=== PATIENT | female | born 1965 | race Asian ===

== ENCOUNTER 2019-07-04 16:08 | Emergency (ER) | payer MEDICAID, SELFPAY ==
[2019-07-04 16:21] VITALS: BP 188/88; PULSE 68; TEMP 36.3; O2SAT 97
--- NOTE | 2019-07-04 16:30 | DI.RAD_ITS ---
EXAM: XR PORTABLE CHEST AP CLINICAL HISTORY: R shoulder pain, ?SOB TECHNIQUE: 2D digital imaging was performed. COMPARISON: No exams were available for comparison FINDINGS: MEDIASTINUM: Normal. HEART: Normal. PULMONARY VASCULATURE: Normal. LUNGS: There is a question of increased lung markings in the medial right base. PLEURAL SPACE: No pleural effusion or pneumothorax. BONE:Normal. OTHER FINDINGS:There is mild elevation of the right hemidiaphragm. IMPRESSION: Question of a right basilar infiltrate. DATA REPOSITORY: RADIATION DOSE DELIVERED:
--- NOTE | 2019-07-04 16:30 | DI.CT_ITS ---
EXAM: CT HEAD WO CLINICAL HISTORY: new onset vertiginous sx's. TECHNIQUE: Imaging Protocol: Axial computed tomography images with coronal and sagittal reformatted images were created and reviewed COMPARISON: No exams were available for comparison FINDINGS: Ventricles and Extra axial spaces: Normal in size and morphology for the patient's age. Hemorrhage: None. Cerebral parenchyma: Normal. There are dense calcifications seen in the basal ganglia bilaterally. Midline shift: None. Brainstem/Cerebellum: Normal. Calvarium: Normal. Visualized Paranasal sinuses/Mastoids: There is mild mucosal thickening in the left maxillary sinus. Soft Tissues: Unremarkable. IMPRESSION: No acute intracranial process. RADIATION DOSE DELIVERED: Total DLP DATA REPOSITORY: All CT scans at this facility are submitted to the National Radiology Data Registry (NRDR) Dose Index Registry (DIR) with the [employer] (A[employer]). RADIATION OPTIMIZATION: All CT scans at this facility use at least one of these dose optimization te chniques: automated exposure control; mA and/or kV adjustment per patient size (includes targeted exa ms where dose is matched to clinical indication); or iterative reconstruction.
--- NOTE | 2019-07-04 16:37 | ED.GENADUL_ITS ---
Discharge Plan Disposition Patient Disposition: HOME Condition: Improving Discharge Details Chief Complaint: SOB Clinical Impression: Pneumonia involving right lung, Vertigo, Sinus infection Primary Care Provider: Jocelyn,Local ED Provider: Zeb Latham Home Meds and New Rx's Prescriptions: New cefdinir 300 mg capsule 300 mg PO Q12H 10 Days Qty: 20 RF: 0 meclizine 12.5 mg tablet 12.5 mg PO BID PRNQty: 10 RF: 0 Continued metformin 500 mg Tablet 1,000 mg PO BID RF: 0 metoprolol tartrate 100 mg Tablet 100 mg PO BID RF: 0 glipizide 10 mg Tablet 10 mg PO DAILY RF: 0 lovastatin 40 mg Tablet 40 mg PO DAILY RF: 0 sertraline 100 mg Tablet 100 mg PO DAILY RF: 0 aspirin [Aspir-81] 81 mg Tablet,Delayed Release (Dr/Ec) 81 mg PO DAILY RF: 0 levothyroxine 25 mcg Tablet 25 mcg PO DAILY RF: 0 lisinopril 40 mg Tablet 40 mg PO DAILY RF: 0 One Daily For Women 18-0.4 mg Tablet 1 tab PO DAILY RF: 0 Discharge Instructions Instructions: Sinusitis (ED), Vertigo (ED), Pneumonia (ED) Additional Instructions: May use meclizine if needed for persistent dizzy sensation. You will benefit from sleeping with the head of the bed elevated 2-3 pillows which will allow the dizziness to help settle down. Avoid quick motions of the head or with bending over. Please take antibiotic as prescribed. Continue your regular medications. Return if you develop persistent high fevers, difficulty breathing, or any other acute concern. Your work-up today included laboratory analysis, chest x-ray, CAT scan of the head. We have ordered outpatient COVID testing for you which as we discussed will occur as an outpatient tomorrow. Medical Decision Making <Andrea Burton MD - Last Filed: 07/04/19 19:26> 54-year-old female presents from home with her son. She has been fasting for the nondenominational holiday. She states that she woke up this afternoon, felt the room was spinning and that this was worse with movement of the head. She also questions transient shortness of breath. States she has had 2 days of constant right shoulder pain is dull and achy. She has not had a rash, no cough, no recent travel. No chest pain on my interview. She has a history of diabetes and hypertension. She arrives with blood pressure approximately 180/80. No evidence of neurologic dysfunction or deficit. Differential diagnosis would include peripheral vertigo, must exclude central process causing vertiginous symptoms, and given the right shoulder pain and question transient shortness of breath would consider PE or other respiratory process. Patient IV access established, referred for EKG, chest x-ray, laboratory testing. She was given meclizine and a small fluid bolus. CT scan of the head without acute finding, there is evidence of mild mucosal thickening in the left maxillary sinus. Chest x-ray with patchy opacity at the right lung base suspicious for a early pneumonia. Patient was given a gram of ceftriaxone I will place her on a course of Cefpodoxime. Will order outpatient coronavirus testing. Patient did have some improvement with meclizine and will benefit from its use a s needed at home. She was observed and repeat troponin will be obtained. Patient be signed out to Dr. Latham pending final diagnostics. Please see his note ECG Data Attestation: I personally reviewed and interpreted this ECG (s) as follows: Interpretation: Normal sinus rhythm, rate of 65, QRS is narrow, there is no ST segment elevation present, the QTC is 432 <Zeb Latham MD - Last Filed: 07/04/19 20:08> patient signed out to me pending second troponin and if negative d/c. 2nd troponin is negative. She is hd stable speaking in full sentences and feels improved, is apporpriate for d/c. Return precautions given and advised to f/u with pcp within a week Lab Data Lab results reviewed: Yes I reviewed the patient's lab results. HPI <Andrea Burton MD - Last Filed: 07/04/19 19:26> General Mode of arrival: wheelchair . Date/Time Provider Initiated Documentation: 07/04/19 16:12 . Limitations to Documentation: no limitations . Information obtained by: patient and family . History of Present Illness 54 year old F presents to the emergency department with the chief complaint of Transient vertiginous symptoms associated w shortness of breath, improved., described as moderate, Quality is described as constant, and is localized to the head. Patient reports no radiation. Patient started experiencing this hour(s) and it has been intermittent. Rest improves symptom(s), Movement worsens symptoms . Patient notes loss of appetite and shortness of breath; denies chest pain, cough, fever/chills, headaches, syncope and weakness. Patient did receive the following treatments prior to arrival, none and other (Patient has been fasting for the hol) Related Data Home Medications Medication Instructions Recorded Confirmed One Daily For Women 1 tab PO DAILY 07/04/19 07/04/19 aspirin [Aspir-81] 81 mg PO DAILY 07/04/19 07/04/19 cefdinir 300 mg PO Q12H 10 Days #20 cap 07/04/19 glipizide 10 mg PO DAILY 07/04/19 07/04/19 levothyroxine 25 mcg PO DAILY 07/04/19 07/04/19 lisinopril 40 mg PO DAILY 07/04/19 07/04/19 lovastatin 40 mg PO DAILY 07/04/19 07/04/19 meclizine 12.5 mg PO BID PRN #10 tab 07/04/19 metformin 1,000 mg PO BID 07/04/19 07/04/19 metoprolol tartrate 100 mg PO BID 07/04/19 07/04/19 sertraline 100 mg PO DAILY 07/04/19 07/04/19 Previous Rx's Medication Instructions Recorded cefdinir 300 mg PO Q12H 10 Days #20 cap 07/04/19 meclizine 12.5 mg PO BID PRN #10 tab 07/04/19 Allergies Allergy/AdvReac Type Severity Reaction Status Date / Time No Known Allergies Allergy Unverified 07/04/19 16:26 General Stated Complaint: SOB NAVEEN: 3 Review of Systems <Andrea Burton MD - Last Filed: 07/04/19 19:26> Narrative: No fever, cough, recent travel or known sick contacts. 7 systems reviewed and otherwise negative PFSH <Andrea Burton MD - Last Filed: 07/04/19 19:26> Social History Smoking/Tobacco Use Status: Never Alcohol Intake: never Drug use: Never Substance use type: does not use Do you feel safe at home: Yes Do you feel safe in your relationship?: Yes Exam <Andrea Burton MD - Last Filed: 07/04/19 19:26> Narrative Exam Narrative: GEN: awake, alert, oriented 3. Pleasant, well groomed, interactive. HEAD: Normocephalic, atraumatic ENT: Mucous membranes moist, tympanic membranes clear bilaterally and external ear exam unremarkable EYES: PERRL, EOMI NECK: Full ROM, no HARSHAD, no menigismus CHEST/RESP: Nontender, clear to auscultation bilateral, no wheeze/rhonchi/rales CARDIOVASCULAR: RRR, no murmur, rub joann. 2+ Rad pulse bilateral ABDOMEN: Soft, nontender, no mass. +Bowel sounds EXT: Full ROM, no edema, no rash Neuro: Grossly normal neurologic exam, conversant, interactive. Psych: Speech fluent, thoughts congruent, affect normal Course <Andrea Burton MD - Last Filed: 07/04/19 19:26> Vital Signs Vital signs: Vital Signs Temperature 36.3 C L 07/04/19 16:21 Pulse 68 07/04/19 16:21 Blood Pressure 188/88 H 07/04/19 16:21 Pulse Oximetry 97 07/04/19 16:21 Temperature 36.3 C L 07/04/19 16:21 Pulse 68 07/04/19 16:21 Respiratory Effort 07/04/19 16:24 Blood Pressure 188/88 H 07/04/19 16:21 Blood Pressure Position Sitting 07/04/19 16:21 Pulse Oximetry 97 07/04/19 16:21 Oxygen Delivery Method Room Air 07/04/19 16:21 Oxygen Flow Rate 0 07/04/19 16:21 Pain Level 3 07/04/19 16:21 Sign Out <Andrea Burton MD - Last Filed: 07/04/19 19:26> Sign Out Data: Sign Out Comment: Followup Troponin Last updated by Andrea Burton MD at 07/04/19 19:39
[2019-07-04 16:51] VITALS: RESP 16
[2019-07-04] MEDS: Meclizine 25 MG TAB PO ×2 (16:56→18:40)
[2019-07-04 16:58] LABS: Abs Immature Grans 0.02 k/cumm (0.0-0.09); Absolute Basophil Count 0.02 k/cumm (0.0-0.2); Absolute Eosinophil Count 0.22 k/cumm (0.0-0.7); Absolute Monocyte Count 0.49 k/cumm (0.11-0.7); Absolute Neutrophil Count 5.29 k/cumm (1.2-6.7); Basophils % 0.2; Eosinophils % 2.7; HCT 44.3 % (36.0-46.0); HGB 15.5 g/dL (12.0-15.5); Immature Grans % 0.2 %; Lymphocytes % 25.8; Mean Corpuscular Hemoglobin 30.4 pg (27.0-33.0); Mean Corpuscular Volume 86.9 fL (80-95); Mean Platelet Volume 10.2 fL (8.0-11.0); Neutrophils % 65.1; Platelet Count 258 x1000/uL (130-400); RBC Distribution Width 13.2 % (11.7-14.6); White Blood Cell Count 8.14 k/cumm (4.4-10.8)
[2019-07-04 17:15] LABS: ALT 33 U/L (14-59); AST 18 U/L (15-37); Albumin 3.7 g/dL (3.4-5.0); Alkaline Phosphatase 93 U/L (46-116); Anion Gap 9.4 mmol/L (3-11); BUN 8 mg/dL (7-18); Bilirubin, Total 0.6 mg/dL (0.2-1.0); CO2 27.6 mmol/L (21.0-32.0); CREATININE 0.62 mg/dL (0.55-1.02); Calcium 8.7 mg/dL (8.5-10.1); Chloride 102 mmol/L (98-107); Glucose 209 mg/dL (74-106); Potassium 4.1 mmol/L (3.5-5.1); Sodium 139 mmol/L (136-145); Total Protein 7.2 g/dL (6.4-8.2); Troponin I < 0.05 ng/Ml (<0.06)
--- NOTE | 2019-07-04 17:33 | DI.VRAD_ITS ---
PROCEDURE INFORMATION: Exam: CT Head Without Contrast Exam date and time: 07/04/2019 4:37 PM Age: 54 years old Clinical indication: Other: Vertigo TECHNIQUE: Imaging protocol: Computed tomography of the head without contrast. COMPARISON: No relevant prior studies available. FINDINGS: Brain: No intracranial bleed, midline shift, or mass effect. The marin-white junctions are well maintained. There is dense calcification of the globus pallidum bilaterally. Ventricles: Normal. No ventriculomegaly. Bones/joints: Unremarkable. No acute fracture. Sinuses: There is mild mucosal thickening in the left maxillary sinus. The visualized paranasal sinuses are otherwise clear. No air-fluid levels. Mastoid air cells: Visualized mastoid air cells are well aerated. Soft tissues: Unremarkable. IMPRESSION: No acute intracranial abnormality. Dictated and Authenticated by: Jer Butterfield MD. Ordering:JINA Mendez MD
--- NOTE | 2019-07-04 17:34 | DI.VRAD_ITS ---
PROCEDURE INFORMATION: Exam: XR Chest, 1 View Exam date and time: 07/04/2019 5:24 PM Age: 54 years old Clinical indication: Other: Shoulder pain TECHNIQUE: Imaging protocol: XR of the chest Views: 1 view. COMPARISON: No relevant prior studies available. FINDINGS: Lungs: There is patchy somewhat interstitial Mara appearing opacity in the medial right lung base suspicious for pneumonia. The lungs are otherwise clear. Pleural space: Unremarkable. No pleural effusion. No pneumothorax. Heart/Mediastinum: Unremarkable. No cardiomegaly. Diaphragm: There is mild elevation of the right hemidiaphragm. Bones/joints: Unremarkable. IMPRESSION: Patchy opacity right lung base suspicious for minimal pneumonia. Atelectasis could have a similar appearance. Dictated and Authenticated by: Jer Butterfield MD. Ordering:JINA Mendez MD
[2019-07-04 17:36] LABS: D-Dimer 369 ng/mlFEU (<500)
[2019-07-04] MEDS: Normal Saline 500 ML IV (18:04)
[2019-07-04] MEDS: cefTRIAXone 1 GM/50 ML BAG IVPB (18:04)
[2019-07-04 20:00] LABS: Troponin I < 0.05 ng/Ml (<0.06)
[2019-07-04 20:25] VITALS: BP 172/80; PULSE 68; RESP 16; TEMP 36.3; O2SAT 97
--- NOTE | 2019-07-13 15:50 | PDOC.ERCMPRO ---
- If Service Date Differs Date of service: 07/13/19 Time of Service: 15:50 Care Management Progress Note At the request of ED provider, CM coordinates a referral to [facility] to assist patient in establishing care with a PCP. A referral is also made to [facility] for assistance in applying for health insurance, as Concetta is currently uninsured.
== END 2019-07-04 20:35 | disposition home or self-care (01) ==
PROVIDERS: Emergency Medicine; Emergency Provider Emergency Medicine
DX: J18.8 Other pneumonia, unspecified organism (principal); J01.90 Acute sinusitis, unspecified; R42 Dizziness and giddiness; E11.9 Type 2 diabetes mellitus without complications; Z79.84 Long term (current) use of oral hypoglycemic drugs; I10 Essential (primary) hypertension
CPT/HCPCS: 80053; 93005; 96361; 96365; 99285; 70450; 71045; 84484; 85025; 85379; 93010; 99284; J0696

== ENCOUNTER 2019-07-05 09:46 | Outpatient (CLI) | payer SELFPAY ==
[2019-07-05 19:51] LABS: COVID-19 RT-PCR UVMMC Result Negative (Negative)
--- NOTE | 2019-07-07 14:42 | NUR.NOTE ---
patient aware about negative covid results. patient is interested in local PCP. I will inform care management. Nursing Note:
== END 2019-07-05 10:06 ==
PROVIDERS: Visit Provider Emergency Medicine
DX: Z11.59 Encounter for screening for other viral diseases (principal)
CPT/HCPCS: U0003